=== PATIENT | female | born 1985 | race African-American/Black ===

== ENCOUNTER 2017-02-05 20:05 | Emergency (ER) | payer SELFPAY ==
--- NOTE | 2017-02-05 20:21 | ER Document Report ---
ED Medical Screen (RME) - General Stated Complaint: ABDOMINAL PAIN Mode of Arrival: Ambulatory Information source: Patient Notes: Patient presents emergency department with complaints of pelvic pain, feels like something is coming out of her vaginal area. She reports it started yesterday. She reports low abdominal pain radiates to her back. Denies urinary frequency reports pressure. Denies vomiting diarrhea fever. I have greeted and performed a rapid initial assessment of this patient. A comprehensive ED assessment and evaluation of the patient, analysis of test results and completion of the medical decision making process will be conducted by additional ED providers. TRAVEL OUTSIDE OF THE [place] IN LAST 30 DAYS: No - Related Data Allergies/Adverse Reactions: codeine Allergy (Verified 10/28/16 06:47) Past Medical History Pulmonary Medical History: Reports: Hx Asthma Neurological Medical History: Reports: Hx Migraine Past Surgical History: Reports: Hx Tonsillectomy Physical Exam - Vital signs Vitals: Temp Pulse Resp BP Pulse Ox 97.7 F 84 18 141/80 H 100 02/05/17 20:15 02/05/17 20:15 02/05/17 20:15 02/05/17 20:15 02/05/17 20:15 Course - Vital Signs Vital signs: Temp Pulse Resp BP Pulse Ox 97.7 F 84 18 141/80 H 100 02/05/17 20:15 02/05/17 20:15 02/05/17 20:15 02/05/17 20:15 02/05/17 20:15
[2017-02-05 20:59] LABS: APPEARANCE,URINE CLEAR; BILIRUBIN,URINE NEGATIVE (NEGATIVE); GLUCOSE, URINE NEGATIVE (NEGATIVE); KETONES,URINE NEGATIVE (NEGATIVE); LEUKOCYTE ESTERASE,URINE NEGATIVE (NEGATIVE); NITRITE,URINE NEGATIVE (NEGATIVE); PROTEIN,URINE NEGATIVE (NEGATIVE); URINE SPECIFIC GRAVITY 1.033; UROBILINOGEN,URINE NEGATIVE mg/dL (<2.0)
[2017-02-05 21:01] LABS: ABSOLUTE EOSINOPHILS # (AUTO) 0.2 10^3/uL (0.0-0.6); ABSOLUTE LYMPHOCYTES (AUTO) 3.7 10^3/uL (0.5-4.7); ABSOLUTE NEUT (AUTO) 4.8 10^3/uL (1.7-8.2); BASOPHILS % (AUTO) 0.4 % (0-2); EOSINOPHILS % (AUTO) 2.1 % (0-6); HEMATOCRIT 35.9 % (36.0-47.0); HEMOGLOBIN 11.9 g/dL (12.0-15.5); HGB HCT DIFFERENCE -0.2; LYMPHOCYTES % (AUTO) 37.9 % (13-45); MEAN CORPUSCULAR HEMOGLOBIN 30.3 pg (27.0-33.4); MEAN CORPUSCULAR HGB CONC 33.1 g/dL (32.0-36.0); MEAN CORPUSCULAR VOLUME 91 fl (80-97); MONOCYTES % (AUTO) 9.9 % (3-13); RED BLOOD COUNT 3.93 10^6/uL (3.72-5.28); RED CELL DISTRIBUTION WIDTH 14.7 % (11.5-14.0); SEGMENTED NEUTROPHILS % (AUTO) 49.7 % (42-78); WHITE BLOOD COUNT 9.7 10^3/uL (4.0-10.5)
[2017-02-05 21:19] LABS: ALANINE AMINOTRANSFERASE 31 U/L (9-52); ALBUMIN 4.1 g/dL (3.5-5.0); ALKALINE PHOSPHATASE 108 U/L (38-126); ANION GAP 12 (5-19); ASPARTATE AMINO TRANSFERASE 20 U/L (14-36); BILIRUBIN,TOTAL 0.2 mg/dL (0.2-1.3); BLOOD UREA NITROGEN 14 mg/dL (7-20); CARBON DIOXIDE 25 mmol/L (22-30); CHLORIDE 102 mmol/L (98-107); CREATININE RESULT 0.78 mg/dL (0.52-1.25); GLUCOSE 59 mg/dL (75-110); POTASSIUM 4.1 mmol/L (3.6-5.0); SODIUM 138.7 mmol/L (137-145)
--- NOTE | 2017-02-05 23:03 | ER Document Report ---
ED General - General Chief Complaint: Vaginal Pain Stated Complaint: ABDOMINAL PAIN Mode of Arrival: Ambulatory Notes: Patient is a 31-year-old female who presents with complaints that she saw a mass protruding from her vagina when she tried use of bathroom. She did take a picture on her phone. She showed me the picture. It appears very consistent with a vaginal prolapse. She had a child 13 years ago. This for some she said problems. Since this episode she has had some spasm and pain in her back and suprapubic region. She has been able to urinate well since then. She has a history of chronic constipation. She takes probiotics. She's had no vaginal bleeding. No fevers. No other complaints at this time. She's not seen a drafter mechanical in a while. TRAVEL OUTSIDE OF THE [place] IN LAST 30 DAYS: No - Related Data Allergies/Adverse Reactions: codeine Allergy (Verified 10/28/16 06:47) Past Medical History - General Information source: Patient - Social History Smoking Status: Current Every Day Smoker Chew tobacco use (# tins/day): No Frequency of alcohol use: None Drug Abuse: None Family History: Reviewed & Not Pertinent Patient has suicidal ideation: No Patient has homicidal ideation: No Pulmonary Medical History: Reports: Hx Asthma Neurological Medical History: Reports: Hx Migraine Renal/ Medical History: Denies: Hx Peritoneal Dialysis Past Surgical History: Reports: Hx Tonsillectomy Review of Systems - Review of Systems Notes: My Normal Review Basic REVIEW OF SYSTEMS: CONSTITUTIONAL : Denies fever, chills, or sweats. Denies recent illness. GASTROINTESTINAL: Mild suprapubic abdominal pain. Denies nausea, vomiting, or diarrhea. Denies constipation. Last BM: GENITOURINARY: Denies difficulty urinating, painful urination, burning, frequency, or blood in urine. FEMALE GENITOURINARY: Vaginal prolapse MUSCULOSKELETAL: Denies neck or back pain or joint pain or swelling. SKIN: Denies rash or skin lesions. NEUROLOGICAL: Denies altered mental status or loss of consciousness. Denies headache. Denies weakness or paralysis or loss of use of either side. Denies problems with gait or speech. Denies sensory or motor loss. ALL OTHER SYSTEMS REVIEWED AND NEGATIVE. Physical Exam - Vital signs Vitals: Temp Pulse Resp BP Pulse Ox 97.7 F 84 18 141/80 H 100 02/05/17 20:15 02/05/17 20:15 02/05/17 20:15 02/05/17 20:15 02/05/17 20:15 - Notes Notes: General Appearance: Well nourished, alert, cooperative, no acute distress, mild obvious discomfort. Vitals: reviewed, See vital signs table.ly Lungs: No wheezing, No rales, No rhonci, No accessory muscle use, good air exchange bilaterally. Heart: Normal rate, Regular rythm, No murmur, no rub Abdomen: Normal BS, soft, No rigidity, mild suprapubic abdominal tenderness to palpation, No guarding, no rebound, no abdominal masses, no organomegaly Pelvic: Normal external genitalia. No abnormality seen on speculum exam. No blood in vaginal vault. Extremities: strength 5/5 in all extremities, good pulses in all extremities, no swelling or tenderness in the extremities, no edema. Skin: warm, dry, appropriate color, no rash Neuro: speech clear, oriented x 3, normal affect, responds appropriately to questions. Course - Vital Signs Vital signs: Temp Pulse Resp BP Pulse Ox 97.7 F 84 18 141/80 H 100 02/05/17 20:15 02/05/17 20:15 02/05/17 20:15 02/05/17 20:15 02/05/17 20:15 - Laboratory Result Diagrams: 02/05/17 20:35 02/05/17 20:35 Laboratory results interpreted by me: 02/05/17 02/05/17 02/05/17 20:30 20:35 20:35 Hgb 11.9 L Hct 35.9 L RDW 14.7 H Glucose 59 L Urine Blood SMALL H - Transfer of Care Notes: 02/05/17 23:13 Patient will be discharged home. Patient has what appears to be vaginal prolapse. The picture on her phone is very consistent with this. She does have a history of chronic constipation. I will place her on Colace to see if this helps the constipation so she does not to bear down is hard when she has a bowel movement. I will refer her to gynecology. I encourage her to return to ER if she has recurrent prolapse or prolapse it does not resolve. Patient agrees with plan and will be discharged home. Dictation of this chart was performed using voice recognition software; therefore, there may be some unintended grammatical errors. Discharge - Discharge Clinical Impression: Vaginal wall prolapse Condition: Good Disposition: HOME, SELF-CARE Additional Instructions: Please take the medications as prescribed to help for constipation. It is much less likely that you'll have a vaginal prolapse if you do not have to bear down as much when you use the bathroom. Please be careful when you lift anything heavy. Please return to ER immediately if you develop a prolapse of does not reduce. Please return to ER immediately if you have fevers, severe pain, blood in your urine, or feel unwell. Please follow up closely with her drafter mechanical, Dr. Rhodes, for reevaluation and further treatment options for your vaginal prolapse. Prescriptions: Docusate Sodium [Colace 100 mg Capsule] 100 mg PO BID #60 capsule Forms: Return to Work Referrals: GOYO RHODES DO [DISTANCE LEARNING PROGRAM COORDINATOR] - 02/07/17
[2017-02-06 00:12] VITALS: BP 123/89
== END 2017-02-06 00:12 | disposition home or self-care (01) ==
LOC: ER 20:05
DX: N81.10 Cystocele, unspecified (principal); R10.2 Pelvic and perineal pain; R10.9 Unspecified abdominal pain; F17.210 Nicotine dependence, cigarettes, uncomplicated
CPT/HCPCS: 36415; 80053; 81001; 84703; 85025; 99283